=== PATIENT | female | born 1950 | race Two or more races ===

== ENCOUNTER 2017-06-14 13:30 | Day surgery (SDC) | payer OTHER ==
[2017-06-14] MEDS ORDERED: PROPOFOL 20 ML ×2 (15:30→16:10)
== END 2017-06-14 17:05 | disposition home or self-care (01) ==
LOC: GIL 13:30
DX: Z12.11 Encounter for screening for malignant neoplasm of colon (principal); K57.90 Diverticulosis of intestine, part unspecified, without perforation or abscess without bleeding; K64.8 Other hemorrhoids; E11.9 Type 2 diabetes mellitus without complications; I10 Essential (primary) hypertension; E78.5 Hyperlipidemia, unspecified
CPT/HCPCS: 45378; 82962